=== PATIENT | male | born 1960 | race Caucasian/White ===

== ENCOUNTER 2020-08-17 16:08 | Emergency (ER) | payer OTHER ==
[~2020-08-17 16:08] MED LIST: PERCOCET 5-3251 EACH PO
== END 2020-08-17 17:44 | disposition left against medical advice (07) ==
LOC: ER1 16:08
DX: Z53.21 Procedure and treatment not carried out due to patient leaving prior to being seen by health care provider (principal)
CPT/HCPCS: J7040

== ENCOUNTER 2020-08-22 17:30 | Emergency (ER) | payer OTHER ==
[2020-08-22 18:10] LABS: HEMOGLOBIN 13.6 gm/dl (14.0-17.5); RED BLOOD COUNT 4.49 M/UL (4.20-5.50); WHITE BLOOD COUNT 5.1 K/UL (4.5-11.0)
[2020-08-22 18:32] LABS: BUN/CREATININE RATIO 17 (0-10)
[2020-08-22] MEDS ORDERED: PROTONIX40 MG PO (20:26)
== END 2020-08-22 20:39 | disposition home or self-care (01) ==
LOC: ER1 17:30
PROVIDERS: Physician Assistant
DX: R10.11 Right upper quadrant pain (principal); E87.6 Hypokalemia; Z90.49 Acquired absence of other specified parts of digestive tract; Z88.2 Allergy status to sulfonamides
CPT/HCPCS: 80053; 81001; 82550; 82553; 83690; 83874; 84484; 85025; 96374; 96375; 99284; J2270; J2405; J7030; Q9967

== ENCOUNTER → 2021-09-21 | Outpatient (CLI) | payer OTHER ==
[~2021-09-21] MED LIST changes: +PROTONIX40 MG PO
== END ==
LOC: KOH-I 09:41
DX: M25.571 Pain in right ankle and joints of right foot (principal)
CPT/HCPCS: 73590; 73610

== ENCOUNTER 2021-10-02 10:22 | Emergency (ER) | payer OTHER | END 2021-10-02 11:50 | disposition left against medical advice (07) | LOC: ER1 10:22 | DX: Z53.21 Procedure and treatment not carried out due to patient leaving prior to being seen by health care provider (principal) ==

== ENCOUNTER 2021-10-03 11:03 | Emergency (ER) | payer OTHER | END 2021-10-03 13:52 | disposition left against medical advice (07) | LOC: ER1 11:03 | DX: Z53.21 Procedure and treatment not carried out due to patient leaving prior to being seen by health care provider (principal) ==

== ENCOUNTER → 2021-11-08 | Outpatient (CLI) | payer OTHER | LOC: KOH-I 10:47 | DX: J32.9 Chronic sinusitis, unspecified (principal) | CPT/HCPCS: 70486 ==